=== PATIENT | male | born 1975 | race Caucasian/White ===

== ENCOUNTER 2022-09-19 03:07 | Emergency (ER) | payer MEDICARE ==
[~2022-09-19] VITALS: Ht 182.9 cm; Wt 72.6 kg
[2022-09-19 05:46] LABS: BASOPHILS ABSOLUTE AUTO 0.06 K/mm3 (0.00-0.23); BASOPHILS PERCENT AUTO 1 % (0-2); EOSINOPHILS ABSOLUTE AUTO 0.27 K/mm3 (0.00-0.68); EOSINOPHILS PERCENT AUTO 2 % (0-6); Hematocrit 46.8 % (37.0-53.0); Hemoglobin 15.3 g/dL (13.5-17.5); IMMATURE GRAN ABSOLUTE AUTO 0.04 K/mm3 (0.00-0.10); IMMATURE GRAN PERCENT AUTO 0 % (0-1); LYMPHOCYTES ABSOLUTE AUTO 2.29 K/mm3 (0.84-5.20); LYMPHOCYTES PERCENT AUTO 19 % (21-46); MONOCYTES ABSOLUTE AUTO 0.96 K/mm3 (0.16-1.47); MONOCYTES PERCENT AUTO 8 % (4-13); Mean Corpuscular HGB 32.4 pg (26.0-34.0); Mean Corpuscular HGB Conc 32.7 g/dL (31.5-36.5); Mean Corpuscular Volume 99 fL (80-100); Mean Platelet Volume 8.8 fL (9.1-12.4); NEUTROPHILS ABSOLUTE AUTO 8.51 K/mm3 (1.96-9.15); NEUTROPHILS PERCENT AUTO 70 % (41-73); Platelet Count 199 K/mm3 (150-400); RDW Coefficient Variation 12.7 % (11.7-14.2); RDW Standard Deviation 46.7 fL (35.1-46.3); Red Blood Cell Count 4.72 M/mm3 (4.30-5.90); White Blood Cell Count 12.13 K/mm3 (4.00-11.30)
[2022-09-19 06:13] LABS: Albumin, Blood 3.6 g/dL (3.4-5.0); Bilirubin, Total 0.7 mg/dL (0.1-1.0); Bun/Creatinine Ratio 14.9 (12.0-20.0); Calcium, Blood 9.1 mg/dL (8.5-10.1); Creatinine, Blood 0.87 mg/dL (0.60-1.20); Globulin, Blood 3.6 g/dL (2.2-4.0); Potassium, Blood 4.1 mmol/L (3.5-5.5); Total Protein, Blood 7.2 g/dL (6.4-8.2)
[2022-09-19 06:56] LABS: Source, Urine Clean Catch
[2022-09-19 07:09] LABS: Appearance, Urine Clear (Clear); Bilirubin, Urine Neg (Neg); Blood, Urine Neg (Neg); Color, Urine Yellow (P-Yellow); Glucose Qualitative, Urine Neg (Neg); Ketones, Urine Neg (Neg); Leukocyte Esterase, Urine Neg (Neg); Nitrite, Urine Neg (Neg); Protein, Urine Neg (Neg); Urobilinogen, Urine NORM (Normal)
== END 2022-09-19 07:29 | disposition home or self-care (01) ==
LOC: ER 03:07
PROVIDERS: Student in an Organized Health Care Education/Training Program
DX: R10.9 Unspecified abdominal pain (principal); G89.29 Other chronic pain; M54.9 Dorsalgia, unspecified; F17.200 Nicotine dependence, unspecified, uncomplicated
CPT/HCPCS: 36415; 74177; 80053; 81003; 83690; 85025; Q9967

== ENCOUNTER 2023-05-03 06:30 | Day surgery (SDC) | payer MEDICARE ==
[~2023-05-03] VITALS: Ht 188 cm; Wt 83.1 kg
[2023-05-03] MEDS ORDERED: L-Lysine500 M1 (07:02)
[2023-05-03] MEDS ORDERED: CETI5 (07:02)
[2023-05-03 09:18] VITALS: BP 118/73
== END 2023-05-03 09:15 | disposition home or self-care (01) ==
LOC: ORSCSDS 06:30
PROVIDERS: Internal Medicine Gastroenterology
PROC: 0DBL8ZX Excision of Transverse Colon, Via Natural or Artificial Opening Endoscopic, Diagnostic (ICD-10-PCS; principal; 2023-05-03 08:00)
DX: K62.89 Other specified diseases of anus and rectum (principal); Z86.010 Personal history of colon polyps; D12.3 Benign neoplasm of transverse colon; K59.00 Constipation, unspecified; K64.8 Other hemorrhoids; K60.2 Anal fissure, unspecified; F31.9 Bipolar disorder, unspecified; H54.7 Unspecified visual loss; F17.210 Nicotine dependence, cigarettes, uncomplicated; Z79.899 Other long term (current) drug therapy
CPT/HCPCS: 88305; J2001; J2704; J7120

== ENCOUNTER 2023-07-10 13:12 | Emergency (ER) | payer MEDICARE ==
[~2023-07-10] VITALS: Ht 188 cm; Wt 81.7 kg
[~2023-07-10 13:12] MED LIST: CETI5; L-Lysine500 M1
[2023-07-10 14:12] VITALS: BP 126/104
== END 2023-07-10 14:32 | disposition left against medical advice (07) ==
LOC: ER 13:12
DX: S01.80XA Unspecified open wound of other part of head, initial encounter (principal); X58.XXXA Exposure to other specified factors, initial encounter; Z53.21 Procedure and treatment not carried out due to patient leaving prior to being seen by health care provider
CPT/HCPCS: 99282

== ENCOUNTER 2023-09-24 18:02 | Emergency (ER) | payer MEDICARE ==
[~2023-09-24] VITALS: Ht 188 cm; Wt 86.2 kg
[2023-09-24 19:00] VITALS: BP 135/72
== END 2023-09-25 00:44 | disposition left against medical advice (07) ==
LOC: ER 18:02
DX: Z53.21 Procedure and treatment not carried out due to patient leaving prior to being seen by health care provider (principal)
CPT/HCPCS: 99281

== ENCOUNTER 2023-10-26 20:37 | Emergency (ER) | payer MEDICARE ==
[~2023-10-26] VITALS: Ht 188 cm; Wt 86.2 kg
[2023-10-26] MEDS ORDERED: VRAYLAR3 MG PO (20:53)
[2023-10-26 21:45] VITALS: BP 119/62
== END 2023-10-26 21:51 | disposition left against medical advice (07) ==
LOC: ER 20:37
DX: Z53.21 Procedure and treatment not carried out due to patient leaving prior to being seen by health care provider (principal)
CPT/HCPCS: 93005; 93010

== ENCOUNTER 2024-06-26 22:08 | Emergency (ER) | payer MEDICARE ==
[~2024-06-26] VITALS: Ht 175.3 cm; Wt 90.7 kg
[~2024-06-26 22:08] MED LIST changes: +VRAYLAR3 MG PO
[2024-06-26] MEDS ORDERED: Droperidol 5 mg/2 ml Vial IV ONE (22:20)
[2024-06-26 22:37] LABS: BASOPHILS ABSOLUTE AUTO 0.06 K/mm3 (0.00-0.23); BASOPHILS PERCENT AUTO 0 % (0-2); EOSINOPHILS PERCENT AUTO 0 % (0-6); Hematocrit 41.3 % (37.0-53.0); IMMATURE GRAN ABSOLUTE AUTO 0.26 K/mm3 (0.00-0.10); IMMATURE GRAN PERCENT AUTO 2 % (0-1); LYMPHOCYTES PERCENT AUTO 12 % (21-46); MONOCYTES ABSOLUTE AUTO 1.19 K/mm3 (0.16-1.47); MONOCYTES PERCENT AUTO 7 % (4-13); Mean Corpuscular HGB 32.6 pg (26.0-34.0); Mean Corpuscular HGB Conc 33.9 g/dL (31.5-36.5); Mean Corpuscular Volume 96 fL (80-100); Mean Platelet Volume 8.7 fL (9.1-12.4); NEUTROPHILS ABSOLUTE AUTO 13.05 K/mm3 (1.96-9.15); NEUTROPHILS PERCENT AUTO 79 % (41-73); Platelet Count 220 K/mm3 (150-400); RDW Coefficient Variation 13.3 % (11.7-14.2); White Blood Cell Count 16.46 K/mm3 (4.00-11.30)
[2024-06-26] MEDS ORDERED: LORazepam 2 MG/ML 1ML Injection IV ONE (22:45)
[2024-06-26 23:24] LABS: Albumin, Blood 3.5 g/dL (3.4-5.0); Bilirubin, Total 0.5 mg/dL (0.1-1.0); Bun/Creatinine Ratio 12.5 (12.0-20.0); Calcium, Blood 8.9 mg/dL (8.5-10.1); Creatinine, Blood 1.04 mg/dL (0.60-1.20); Globulin, Blood 3.4 g/dL (2.2-4.0); Potassium, Blood 3.7 mmol/L (3.5-5.5); Total Protein, Blood 6.9 g/dL (6.4-8.2)
[2024-06-26] MEDS ORDERED: Haloperidol Lactate Inj. 5 MG/ML Injection IV ONE (23:30)
[2024-06-26 23:38] LABS: International Normalized Ratio 0.98; Prothrombin Time Results 10.5 Sec (9.7-11.5)
[2024-06-27] MEDS ORDERED: NS 1,000 ML IV SCH (00:10)
[2024-06-27 00:32] LABS: U Amphetamine Screen Not Detected; U Barbituate Screen Not Detected; U Benzodiazapine Screen Not Detected; U Buprenorphine Screen Not Detected; U Cannabinoids Screen DETECTED; U Cocaine Screen Not Detected; U Methadone Screen Not Detected; U Methamphetamine Screen Not Detected; U Opiates Screen Not Detected; U Oxycodone Screen Not Detected; U Phencyclidine Screen Not Detected
[2024-06-27] MEDS ORDERED: LORazepam 2 MG/ML 1ML Injection IV ONE (02:05)
[2024-06-27] MEDS ORDERED: Haloperidol Lactate Inj. 5 MG/ML Injection ONE (02:16)
[2024-06-27] MEDS ORDERED: Haloperidol Lactate Inj. 5 MG/ML Injection IV ONE (02:30)
[2024-06-27 04:00] VITALS: BP 129/75
== END 2024-06-27 09:19 | disposition home or self-care (01) ==
LOC: ER 22:08
PROVIDERS: Emergency Medicine
DX: S00.03XA Contusion of scalp, initial encounter (principal); F10.129 Alcohol abuse with intoxication, unspecified; Y90.8 Blood alcohol level of 240 mg/100 ml or more; F12.90 Cannabis use, unspecified, uncomplicated; Y04.8XXA Assault by other bodily force, initial encounter; Z79.899 Other long term (current) drug therapy; F17.200 Nicotine dependence, unspecified, uncomplicated
CPT/HCPCS: 70450; 70486; 80053; 80320; 83605; 85025; 85610; 85730; 96374; 96375; 96376; 99285-25; J1630; J1790; J2060; J7030

== ENCOUNTER 2024-07-23 17:55 | Emergency (ER) | payer MEDICARE ==
[~2024-07-23] VITALS: Ht 185.4 cm; Wt 90.7 kg
[2024-07-23] MEDS ORDERED: Ondansetron HCl 2 MG / ML 2ML Vial IV ONE (18:10)
[2024-07-23] MEDS ORDERED: Droperidol 5 mg/2 ml Vial IV ONE (18:35)
[2024-07-23 18:39] LABS: Source, Urine Clean Catch
[2024-07-23 18:44] LABS: BASOPHILS ABSOLUTE AUTO 0.07 K/mm3 (0.00-0.23); BASOPHILS PERCENT AUTO 1 % (0-2); EOSINOPHILS PERCENT AUTO 2 % (0-6); Hemoglobin 15.2 g/dL (13.5-17.5); IMMATURE GRAN ABSOLUTE AUTO 0.05 K/mm3 (0.00-0.10); IMMATURE GRAN PERCENT AUTO 1 % (0-1); LYMPHOCYTES ABSOLUTE AUTO 2.89 K/mm3 (0.84-5.20); LYMPHOCYTES PERCENT AUTO 28 % (21-46); MONOCYTES PERCENT AUTO 8 % (4-13); Mean Corpuscular HGB 31.9 pg (26.0-34.0); Mean Corpuscular Volume 97 fL (80-100); Mean Platelet Volume 8.5 fL (9.1-12.4); NEUTROPHILS PERCENT AUTO 61 % (41-73); Platelet Count 230 K/mm3 (150-400); RDW Coefficient Variation 13.3 % (11.7-14.2); RDW Standard Deviation 47.9 fL (35.1-46.3); Red Blood Cell Count 4.76 M/mm3 (4.30-5.90); White Blood Cell Count 10.31 K/mm3 (4.00-11.30)
[2024-07-23 18:45] LABS: Appearance, Urine Clear (Clear); Bilirubin, Urine Neg (Neg); Blood, Urine Neg (Neg); Glucose Qualitative, Urine Neg (Neg); Ketones, Urine Neg (Neg); Leukocyte Esterase, Urine Neg (Neg); Nitrite, Urine Neg (Neg); Protein, Urine Neg (Neg); Urobilinogen, Urine NORM (Normal)
[2024-07-23 19:00] LABS: U Amphetamine Screen Not Detected; U Barbituate Screen Not Detected; U Benzodiazapine Screen Not Detected; U Buprenorphine Screen Not Detected; U Cannabinoids Screen DETECTED; U Cocaine Screen Not Detected; U Methadone Screen Not Detected; U Methamphetamine Screen Not Detected; U Opiates Screen Not Detected; U Oxycodone Screen Not Detected; U Phencyclidine Screen Not Detected
[2024-07-23 19:02] LABS: Color, Urine Pale Yellow (P-Yellow)
[2024-07-23 19:14] LABS: Albumin, Blood 3.7 g/dL (3.4-5.0); Bilirubin, Total 0.7 mg/dL (0.1-1.0); Bun/Creatinine Ratio 8.4 (12.0-20.0); Calcium, Blood 8.5 mg/dL (8.5-10.1); Creatinine, Blood 0.96 mg/dL (0.60-1.20); Globulin, Blood 3.7 g/dL (2.2-4.0); Potassium, Blood 3.8 mmol/L (3.5-5.5); Total Protein, Blood 7.4 g/dL (6.4-8.2)
[2024-07-23 23:39] VITALS: BP 138/70
== END 2024-07-23 23:40 | disposition home or self-care (01) ==
LOC: ER 17:55
PROVIDERS: Student in an Organized Health Care Education/Training Program
DX: F10.129 Alcohol abuse with intoxication, unspecified (principal); Y90.8 Blood alcohol level of 240 mg/100 ml or more; F32.A Depression, unspecified; F17.200 Nicotine dependence, unspecified, uncomplicated; Z79.899 Other long term (current) drug therapy
CPT/HCPCS: 70450; 80053; 80320; 81003; 84484; 85025; 93005; 93010; 96374; 96375; 99285-25; J1790; J2405

== ENCOUNTER 2024-08-15 19:03 | Emergency (ER) | payer MEDICARE ==
[~2024-08-15] VITALS: Ht 188 cm; Wt 90.7 kg
[2024-08-15 19:03] VITALS: BP 129/79
[2024-08-15] MEDS ORDERED: Diphth,Pertuss(Acell),Tet Vac 0.5 ML VIAL IM ONE (19:15)
== END 2024-08-16 19:19 ==
LOC: ER 19:03
DX: S80.211A Abrasion, right knee, initial encounter (principal); F10.129 Alcohol abuse with intoxication, unspecified; F17.200 Nicotine dependence, unspecified, uncomplicated; W19.XXXA Unspecified fall, initial encounter; Z79.899 Other long term (current) drug therapy
CPT/HCPCS: 90471; 90715; 99283-25

== ENCOUNTER 2024-11-20 16:04 | Emergency (ER) | payer MEDICARE ==
[~2024-11-20] VITALS: Ht 188 cm; Wt 93.0 kg
[2024-11-20 17:13] VITALS: BP 129/78
== END 2024-11-20 21:27 | disposition home or self-care (01) ==
LOC: ER 16:04
DX: S01.81XA Laceration without foreign body of other part of head, initial encounter (principal); F10.129 Alcohol abuse with intoxication, unspecified; F17.200 Nicotine dependence, unspecified, uncomplicated; W19.XXXA Unspecified fall, initial encounter; Z79.899 Other long term (current) drug therapy
CPT/HCPCS: 12011; 70450; 72125; 99284-25

== ENCOUNTER 2024-11-22 19:48 | Emergency (ER) | payer MEDICARE ==
[~2024-11-22] VITALS: Ht 188 cm; Wt 99.8 kg
[2024-11-22 20:13] VITALS: BP 101/66
[2024-11-22] MEDS ORDERED: Diphth,Pertuss(Acell),Tet Vac 0.5 ML VIAL IM ONE (20:20)
== END 2024-11-22 21:40 | disposition home or self-care (01) ==
LOC: ER 19:48
DX: F10.129 Alcohol abuse with intoxication, unspecified (principal); F17.200 Nicotine dependence, unspecified, uncomplicated; Z79.899 Other long term (current) drug therapy
CPT/HCPCS: 90471; 93005; 93010; 99284-25

== ENCOUNTER 2024-12-25 21:12 | Inpatient (IN) | payer OTHER ==
[~2024-12-25] VITALS: Ht 180.3 cm; Wt 82.4 kg
[~2024-12-25 21:12] MED LIST changes: +Etomidate 2MG / ML 10ML Vial XX ONE; +LORazepam 2 MG / ML 10ML Vial IV ONE; +Rocuronium Bromide 10 MG/ML 5ML Injection IV ONE
[2024-12-25] MEDS ORDERED: Etomidate 2MG / ML 10ML Vial IV ONE (21:40)
[2024-12-25] MEDS ORDERED: propofoL 100 ML IV SCH (21:40)
[2024-12-25] MEDS ORDERED: Rocuronium Bromide 10 MG/ML 5ML Injection IV ONE (21:40)
[2024-12-25] MEDS ORDERED: FentaNYL Citrate 50 MCG/ML 2 ML Injection IV SCH (21:40)
[2024-12-25 21:47] LABS: BASOPHILS ABSOLUTE AUTO 0.04 K/mm3 (0.00-0.23); BASOPHILS PERCENT AUTO 0 % (0-2); EOSINOPHILS ABSOLUTE AUTO 0.14 K/mm3 (0.00-0.68); EOSINOPHILS PERCENT AUTO 2 % (0-6); Hematocrit 39.3 % (37.0-53.0); Hemoglobin 13.4 g/dL (13.5-17.5); IMMATURE GRAN ABSOLUTE AUTO 0.07 K/mm3 (0.00-0.10); IMMATURE GRAN PERCENT AUTO 1 % (0-1); LYMPHOCYTES ABSOLUTE AUTO 2.88 K/mm3 (0.84-5.20); LYMPHOCYTES PERCENT AUTO 30 % (21-46); MONOCYTES ABSOLUTE AUTO 0.93 K/mm3 (0.16-1.47); MONOCYTES PERCENT AUTO 10 % (4-13); Mean Corpuscular HGB 32.5 pg (26.0-34.0); Mean Corpuscular HGB Conc 34.1 g/dL (31.5-36.5); Mean Corpuscular Volume 95 fL (80-100); Mean Platelet Volume 9.1 fL (9.1-12.4); NEUTROPHILS ABSOLUTE AUTO 5.47 K/mm3 (1.96-9.15); NEUTROPHILS PERCENT AUTO 57 % (41-73); Platelet Count 200 K/mm3 (150-400); RDW Coefficient Variation 13.3 % (11.7-14.2); RDW Standard Deviation 46.5 fL (35.1-46.3); Red Blood Cell Count 4.12 M/mm3 (4.30-5.90); White Blood Cell Count 9.53 K/mm3 (4.00-11.30)
[2024-12-25] MEDS ORDERED: fentaNYL citrate 1,000 MCG in NS 80 ML IV SCH (22:10)
[2024-12-25 22:11] LABS: Source, Urine Clean Catch
[2024-12-25 22:14] LABS: Magnesium, Blood 2.3 mg/dL (1.6-2.4)
[2024-12-25 22:17] LABS: Albumin, Blood 3.5 g/dL (3.4-5.0); Bilirubin, Total 0.4 mg/dL (0.1-1.0); Bun/Creatinine Ratio 15.2 (12.0-20.0); Calcium, Blood 8.3 mg/dL (8.5-10.1); Creatinine, Blood 0.86 mg/dL (0.60-1.20); Globulin, Blood 3.4 g/dL (2.2-4.0); Potassium, Blood 3.6 mmol/L (3.5-5.5); Total Protein, Blood 6.9 g/dL (6.4-8.2)
[2024-12-25 22:20] LABS: Appearance, Urine Clear (Clear); Bilirubin, Urine Neg (Neg); Blood, Urine Neg (Neg); Color, Urine Pale Yellow (P-Yellow); Glucose Qualitative, Urine Neg (Neg); Ketones, Urine Neg (Neg); Leukocyte Esterase, Urine Neg (Neg); Nitrite, Urine Neg (Neg); Protein, Urine Neg (Neg); Specific Gravity, Urine 1.015 (1.003-1.022); Urobilinogen, Urine NORM (Normal)
[2024-12-25 22:41] LABS: U Amphetamine Screen Not Detected; U Barbituate Screen Not Detected; U Benzodiazapine Screen Not Detected; U Buprenorphine Screen Not Detected; U Cannabinoids Screen DETECTED; U Cocaine Screen Not Detected; U Methadone Screen Not Detected; U Methamphetamine Screen Not Detected; U Opiates Screen Not Detected; U Oxycodone Screen Not Detected; U Phencyclidine Screen Not Detected
[2024-12-25] MEDS ORDERED: dexmedeTOMIDine 100 ML IV SCH (23:10)
[2024-12-26] VITALS (49 sets, daily range): BP systolic 92–151; BP diastolic 58–88
[2024-12-26] MEDS ORDERED: NS 1,000 ML IV SCH ×2 (00:55→02:15)
[2024-12-26] MEDS ORDERED: MetroNIDAZOLE 500MG/NS 100 ml 100 ML IV ONE (01:50)
[2024-12-26] MEDS ORDERED: CefTRIAXone Sodium 1,000 MG in NS 50 ML IV ONE (01:50)
[2024-12-26 01:52] LABS: Base Excess Venous -4.3 mmol/L; Bicarbonate Venous 21.5 mmol/L (24.0-30.0); pH Blood Venous 7.42 (7.34-7.37)
[2024-12-26] MEDS ORDERED: NS 1,000 ML IV ONE ×2 (02:08→09:10)
[2024-12-26] MEDS ORDERED: Midazolam HCL 50 MG in NS 40 ML IV PRN (02:10)
[2024-12-26] MEDS ORDERED: Midazolam HCl 1MG / ML 2ML Vial IV PRN (03:45)
[2024-12-26] MEDS ORDERED: FLU VACC TS2024-25(6MOS UP)/PF 45 MCG/0.5 ML SYRINGE IM ONE (03:45)
[2024-12-26] MEDS ORDERED: Acetaminophen 325 MG TABLET PO PRN (03:45)
[2024-12-26] MEDS ORDERED: FentaNYL Citrate 50 MCG/ML 5 ML Injection IV SCH (03:50)
[2024-12-26 03:54] LABS: BASOPHILS ABSOLUTE AUTO 0.02 K/mm3 (0.00-0.23); BASOPHILS PERCENT AUTO 0 % (0-2); EOSINOPHILS ABSOLUTE AUTO 0.05 K/mm3 (0.00-0.68); EOSINOPHILS PERCENT AUTO 1 % (0-6); Hematocrit 34.5 % (37.0-53.0); Hemoglobin 12.2 g/dL (13.5-17.5); IMMATURE GRAN ABSOLUTE AUTO 0.04 K/mm3 (0.00-0.10); IMMATURE GRAN PERCENT AUTO 1 % (0-1); LYMPHOCYTES ABSOLUTE AUTO 2.52 K/mm3 (0.84-5.20); LYMPHOCYTES PERCENT AUTO 31 % (21-46); MONOCYTES ABSOLUTE AUTO 0.65 K/mm3 (0.16-1.47); MONOCYTES PERCENT AUTO 8 % (4-13); Mean Corpuscular HGB 32.9 pg (26.0-34.0); Mean Corpuscular HGB Conc 35.4 g/dL (31.5-36.5); Mean Corpuscular Volume 93 fL (80-100); Mean Platelet Volume 9.2 fL (9.1-12.4); NEUTROPHILS ABSOLUTE AUTO 4.74 K/mm3 (1.96-9.15); NEUTROPHILS PERCENT AUTO 59 % (41-73); Platelet Count 182 K/mm3 (150-400); RDW Coefficient Variation 13.2 % (11.7-14.2); RDW Standard Deviation 45.4 fL (35.1-46.3); Red Blood Cell Count 3.71 M/mm3 (4.30-5.90); White Blood Cell Count 8.02 K/mm3 (4.00-11.30)
[2024-12-26] MEDS ORDERED: Hydrogen Peroxide 1.5 % Solution MT SCH (04:00)
[2024-12-26] MEDS ORDERED: Lactated Ringer's 1,000 ML IV SCH (04:00)
[2024-12-26 04:20] LABS: Albumin/Globulin Ratio 1.1 (0.8-1.8); Bilirubin, Total 0.5 mg/dL (0.1-1.0); Bun/Creatinine Ratio 14.6 (12.0-20.0); Calcium, Blood 7.6 mg/dL (8.5-10.1); Creatinine, Blood 0.69 mg/dL (0.60-1.20); Globulin, Blood 2.7 g/dL (2.2-4.0); Magnesium, Blood 2.1 mg/dL (1.6-2.4); Potassium, Blood 3.5 mmol/L (3.5-5.5); Total Protein, Blood 5.7 g/dL (6.4-8.2)
[2024-12-26] MEDS ORDERED: dexmedeTOMIDine 100 ML IV SCH (04:25)
[2024-12-26] MEDS ORDERED: propofoL 100 ML IV PRN (04:25)
[2024-12-26] MEDS ORDERED: Ampicillin Sod/Sulbactam Sod 3 GM in NS 100 ML IV SCH (05:00)
[2024-12-26] MEDS ORDERED: Pantoprazole Sodium 40 MG Injection IV SCH (06:00)
--- NOTE | 2024-12-26 06:10 | NUR ---
SHIFT SUMMARY: PATIENT ARRIVED FROM THE ED APPROXIMATELY 0300. HE WAS INTUBATED, VENTILATED, TEMP FINLEY IN PLACE ON [place] AND VERSED GTT. HE HAD C-COLLAR IN PLACE. 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 PT HR 50S-60S, BP STABLE. HE HAS EXHIBITED SOME RESPONSE TO PRESSURE OR STIMULI BUT NOT FOLLOWING COMMANDS.
[2024-12-26] MEDS ORDERED: Cetylpyridinium Chloride 1 EA MISC MT SCH (08:00)
[2024-12-26] MEDS ORDERED: Lactobacil 2-S.Thermo-Bifido 1 1 Cap PO SCH (09:00)
[2024-12-26] MEDS ORDERED: fentaNYL citrate 1,000 MCG in NS 80 ML IV SCH (09:10)
--- NOTE | 2024-12-26 17:11 | NUR ---
SUMMARY PT WAS INTUBATED AND SEDATED UNTIL THIS AFTERNOON. DIFFICULT TO SEDATE THIS AM WITH AGITATION. SEDATION WAS SHUT OFF THIS AFTERNOON SEE FLOWSHEET. PT WAS CALM AND COOPERATIVE. PT EXTUBATED TO 2LNC AT 1423. PT IS PLEASANT AND COOPERATIVE. A/O TO PERSON, PLACE, TIME, AND FAMILY. ANSWERING QUESTIONS APPROPRIATELY. STARTING TO REMEMBER SOME OF EVENTS LEADING TO HOSPITALIZATION. TOLERATING WATER, WILL TRY CLEAR LIQUID DIET TONIGHT. VOICE IS GETTING STRONGER.
[2024-12-26] MEDS ORDERED: LORazepam 2 MG/ML 1ML Injection IV PRN ×3 (18:05)
--- NOTE | 2024-12-26 18:52 | NUR ---
SUMMARY PT WAS INTUBATED AND SEDATED THIS AM. SEDATION WAS TITRATED OFF SEE FLOWSHEET AND EXTUBATED TO 2L NC AT 1423. PT IS A/O TO PERSON, PLACE, AND FAMILY. STARTING TO REMEMBER SOME OF THE EVENTS THAT LEAD TO HOSPITALIZATION. TOLERATED WATER AND SOME OF CL DINNER TRAY. THIS EVENING PT IS BECOMING AGITATED AND HAS SUICIDAL IDEATION. MORE AGITATED WITH FAMILY AT BEDSIDE. DR. LEAL NOTIFIED. 1:1 SITTER FOR SAFETY, PRECEDEX STARTED. PT STATES HE JUST WANTS TO SLEEP FOR 12 HRS STRAIGHT.
[2024-12-26] MEDS ORDERED: Folic Acid 1 MG in NS 50 ML IV SCH (21:00)
[2024-12-26] MEDS ORDERED: Thiamine HCl 100 MG in NS 50 ML IV SCH (21:00)
[2024-12-27] VITALS (26 sets, daily range): BP systolic 106–172; BP diastolic 70–111
[2024-12-27 05:26] LABS: BASOPHILS ABSOLUTE AUTO 0.03 K/mm3 (0.00-0.23); BASOPHILS PERCENT AUTO 0 % (0-2); EOSINOPHILS ABSOLUTE AUTO 0.14 K/mm3 (0.00-0.68); EOSINOPHILS PERCENT AUTO 2 % (0-6); Hematocrit 36.8 % (37.0-53.0); Hemoglobin 12.7 g/dL (13.5-17.5); IMMATURE GRAN ABSOLUTE AUTO 0.05 K/mm3 (0.00-0.10); IMMATURE GRAN PERCENT AUTO 1 % (0-1); LYMPHOCYTES ABSOLUTE AUTO 2.13 K/mm3 (0.84-5.20); LYMPHOCYTES PERCENT AUTO 25 % (21-46); MONOCYTES ABSOLUTE AUTO 0.87 K/mm3 (0.16-1.47); MONOCYTES PERCENT AUTO 10 % (4-13); Mean Corpuscular HGB Conc 34.5 g/dL (31.5-36.5); Mean Corpuscular Volume 96 fL (80-100); Mean Platelet Volume 9.4 fL (9.1-12.4); NEUTROPHILS ABSOLUTE AUTO 5.21 K/mm3 (1.96-9.15); NEUTROPHILS PERCENT AUTO 62 % (41-73); Platelet Count 174 K/mm3 (150-400); RDW Coefficient Variation 13.6 % (11.7-14.2); RDW Standard Deviation 47.6 fL (35.1-46.3); Red Blood Cell Count 3.85 M/mm3 (4.30-5.90); White Blood Cell Count 8.43 K/mm3 (4.00-11.30)
[2024-12-27 05:44] LABS: Albumin, Blood 2.8 g/dL (3.4-5.0); Bilirubin, Total 1.2 mg/dL (0.1-1.0); Bun/Creatinine Ratio 11.8 (12.0-20.0); Creatinine, Blood 0.85 mg/dL (0.60-1.20); Globulin, Blood 2.8 g/dL (2.2-4.0); Potassium, Blood 3.8 mmol/L (3.5-5.5); Total Protein, Blood 5.6 g/dL (6.4-8.2)
--- NOTE | 2024-12-27 06:16 | NUR ---
SHIFT SUMMARY: PT HAS RESTED PEACEFULLY THROUGH NIGHT. HE HAS DENIED SUICIDAL IDEATION THROUGH SHIFT AND HAS BEEN VERY CALM AND COOPERATIVE. HE REMAINS ON PRECEDEX GTT. HE IS A&OX4. NEUROLOGICALLY INTACT. HE HAS DENIED SYMPTOMS ASSOCIATED WITH ALCOHOL WITHDRAWAL SO FAR. PT DENIES BEING AN EVERY DAY ALCOHOL DRINKER. BREATHING HAS BEEN NON-LABORED, LUNGS ARE CLEAR. HE HAS BEEN IN A SINUS SARABJIT, BUT WAS DURING SHIFT THE NIGHT PRIOR WELL. BLOOD PRESSURE REMAINS STABLE.
[2024-12-27] MEDS ORDERED: Enoxaparin 40 MG/0.4 ML SYR SC SCH (08:00)
[2024-12-27] MEDS ORDERED: TraMADol HCl 50 MG Tab PO PRN (08:30)
--- NOTE | 2024-12-27 09:27 | NUR ---
THIS RN ASSUMED CARE OF PT AT 0700. PT IS ALERT AND ORIENTED X3, WAS A LITTLE CONFUSED ABOUT THE SITUATION. PT IS APPROPRTIATE AND COOPERATIVE. PT HEART RATE IN THE 70s, BLOOD PRESSURE 154/94, PT DENIES CHEST PAIN. PT IS ON ROOM AIR SOUNDS CLEAR, SATTING >95%, PT DENIES SHORTNESS OF BREATH. PT DOES HAVE FINLEY CATHETER DRAINING TO GRAVITY. PT IS STILL HAVING SUICIDAL IDEATIONS, PSYCH HAS BEEN CONSULTED AND NOTIFIED BY THIS RN, THEY STATED THEY WOULD BE BY LATER THIS AFTERNOON. NO OTHER INTERVENTIONS AT THIS TIME. PT IS HAVING SOME BACK PAIN TREATED PER EMAR. PLAN OF CARE CONTINUED.
[2024-12-27] MEDS ORDERED: HydrALAZINE HCl 20 MG / ML 1ML Vial IV PRN (10:10)
[2024-12-27] MEDS ORDERED: dexmedeTOMIDine 100 ML IV SCH (14:25)
[2024-12-27] MEDS ORDERED: LORazepam 2 MG/ML 1ML Injection IV PRN ×2 (14:55→15:00)
[2024-12-27] MEDS ORDERED: Haloperidol Lactate Inj. 5 MG/ML Injection IM PRN (15:00)
[2024-12-27] MEDS ORDERED: Folic Acid 1 MG TAB PO SCH (15:00)
[2024-12-27] MEDS ORDERED: Lisinopril 5 MG Tab PO SCH (17:00)
--- NOTE | 2024-12-27 17:06 | NUR ---
Pastoral care visitation conducted. Pt was recumbent and reciprocated pleasant salutation upon entry into his room. He reflected easily and proceeded to share about his life situation. Active listening and rapport establishing feedback extended. Patient spoke about his supportive mother but remained despondent in his outlook on his situation. Brief encouragement and words of inspiration extended along with consolatory prayer. Patient was receptive and remained at ease congruently. Pastoral care to remain available as needed.
--- NOTE | 2024-12-27 17:10 | NUR ---
DISCUSSED CASE WITH PROVIDER AND BEDSIDE RN. THERAPUTIC CONVERSATION TO PATIENT AND FAMILY. DISCUSSED CONCERNS ABOUT PATIENTS SAFTY IF HE LEAVES THE HOSPITAL. PROVIDER DISCUSSED WITH PATIENT AND FAMILY, PATIENT PLACED ON 2MD HOLD.
--- NOTE | 2024-12-27 17:24 | NUR ---
PT SUMMARY PT IS PLEASANT, AND STILL COOPERATIVE. THIS AM PT DID HAVE SUICIDAL IDEATIONS, DR. LEAL WAS ALSO PRESENT AT BEDSIDE. [facility] DOCTOR CAME BY AND WAS TOLD A COMPLETELY DIFFERENT STORY. AFTER A DISCUSSION WITH , PT WAS PUT ON A INVOLUNTARY HOLD. PT IS AWARE AND LEE WILL COME BY AGAIN IN THE AM TO REASSESS THE PT. PT IS BACK ON PRECEDEX NOW TITRATED UP TO 0.5. PT WAS AGITATED AT 1200 WITH THE HOLD, BUT HAS CALMED DOWN SINCE. NO OTHER INTERVENTIONS AT THIS TIME. PLAN OF CARE CONTINUED.
[2024-12-28] VITALS (20 sets, daily range): BP systolic 101–148; BP diastolic 59–83
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
[2024-12-28 07:55] LABS: BASOPHILS ABSOLUTE AUTO 0.03 K/mm3 (0.00-0.23); BASOPHILS PERCENT AUTO 0 % (0-2); EOSINOPHILS ABSOLUTE AUTO 0.12 K/mm3 (0.00-0.68); EOSINOPHILS PERCENT AUTO 2 % (0-6); Hematocrit 38.8 % (37.0-53.0); Hemoglobin 13.2 g/dL (13.5-17.5); IMMATURE GRAN ABSOLUTE AUTO 0.04 K/mm3 (0.00-0.10); IMMATURE GRAN PERCENT AUTO 1 % (0-1); LYMPHOCYTES PERCENT AUTO 23 % (21-46); MONOCYTES ABSOLUTE AUTO 0.87 K/mm3 (0.16-1.47); MONOCYTES PERCENT AUTO 11 % (4-13); Mean Corpuscular HGB 32.1 pg (26.0-34.0); Mean Corpuscular Volume 94 fL (80-100); Mean Platelet Volume 9.2 fL (9.1-12.4); NEUTROPHILS ABSOLUTE AUTO 5.23 K/mm3 (1.96-9.15); NEUTROPHILS PERCENT AUTO 64 % (41-73); Platelet Count 210 K/mm3 (150-400); RDW Coefficient Variation 13.3 % (11.7-14.2); RDW Standard Deviation 46.1 fL (35.1-46.3); Red Blood Cell Count 4.11 M/mm3 (4.30-5.90); White Blood Cell Count 8.19 K/mm3 (4.00-11.30)
[2024-12-28 08:15] LABS: Albumin, Blood 3.1 g/dL (3.4-5.0); Bilirubin, Total 1.9 mg/dL (0.1-1.0); Bun/Creatinine Ratio 9.2 (12.0-20.0); Calcium, Blood 8.5 mg/dL (8.5-10.1); Creatinine, Blood 0.87 mg/dL (0.60-1.20); Globulin, Blood 3.2 g/dL (2.2-4.0); Potassium, Blood 3.7 mmol/L (3.5-5.5); Total Protein, Blood 6.3 g/dL (6.4-8.2)
--- NOTE | 2024-12-28 09:40 | NUR ---
THIS RN ASSUMED CARE OF PT AT 0700. PT IS ALERT AND ORIENTED X4, PT IS VERY APPROPRIATE AND KIND. PT HEART RATE IN THE 70s, BLOOD PRESSURE STABLE AT 119/59. PT DENIES CHEST PAIN UPON ASSESSMENT. PT IS ON ROOM AIR, SOUNDS CLEAR THROUGHOUT AND IS SATTING >95%, PT DENIES SHORTNESS OF BREATH. PT VOIDS PER URINAL. DR. LEAL WAS AT BEDSIDE THIS AM, PROVIDER IS WAITIING FOR PSYCH DOCTOR TO COME REASSESS PT THIS AM, AFTER THAT THE PROVIDERS WILL HAVE A CONVERSATION THEN COME UP WITH A PLAN. NO OTHER INTERVENTIONS AT THIS TIME. PLAN OF CARE CONTINUED.
--- NOTE | 2024-12-28 18:20 | NUR ---
PT SUMMARY PSYCH CAME BY THIS AFTERNOON AND SAID THAT IF PT IS MEDICALLY STABLE PT CAN GO OVER TO [facility] [place], HOSPITALIST PUT IN DISCHARGE ORDERS AND THIS RN COMPLETED AND GOT PT READY FOR [facility] [place] [facility]. THEN U CALLED SAYING THEY DID NOT THINK PT WAS MEDICALLY STABLE ENOUGH AND WANTED PT TO STAY IN THE HOSPITAL ONE MORE NIGHT. PT IS NOW MEDICAL STATUS, MOM AND PT HAVE BEEN UPDATED ON THE SITUATION. NO OTHER INTERVENTIONS AT THIS TIME. PLAN OF CARE CONTINUED.
[2024-12-28] MEDS ORDERED: OLANZapine 10 MG Tab PO SCH (21:00)
[2024-12-29] VITALS (16 sets, daily range): BP systolic 119–140; BP diastolic 70–91
[2024-12-29] MEDS ORDERED: OLANZapine 10 MG Tab PO ONE (17:15)
[2024-12-29] MEDS ORDERED: OLANZapine 10 MG Vial IM PRN (17:30)
[2024-12-29] MEDS ORDERED: Haloperidol Lactate Inj. 5 MG/ML Injection IM PRN (17:40)
[2024-12-29] MEDS ORDERED: OLANZapine ODT 10 MG Tab MM ONE (18:00)
--- NOTE | 2024-12-29 18:52 | NUR ---
Summary. Pt alert and oriented this shift, cooperative with care. Mother updated at bedside this am. During afternoon pt became more upset and agitated. Repeatedly stated he wanted to leave the hospital and get home. Pt stated hx of using marijuana to calm himself and control anxiety. Dr. Alcantara called to bedside for pt agitation, calls maded to Dr. Chau as well. Order obtained for additional dose of PO Zyprexa which pt took. Dr Chau rounded later and stated pt could receive doses of IV ativan if necessary to rest overnight and pt would still be able to discharge to [facility] in the morning. Pt more calm at this time.
--- NOTE | 2024-12-29 21:06 | NUR ---
ASSUMPTION OF CARE: ASSUMED CARE OF PT AT 1900. PT ALERT AND ORIENTED. FOLLOWS DIRECTION AND MAKES NEEDS KNOWN. DENIES SI THIS SHIFT. PLEASANT WITH CARE. DENIES PAIN. PT ON RA WITH SPO2 HIGH 90'S, DENIES SOB. LUNGS CLEAR. PHOTOGRAPHER'S MODEL IN PLACE, SR WITH HR 60-70'S. SBP 130'S. DENIES CP/PRESSURE. SCAB ABOVE LEFT EYE, OPEN TO AIR, BLACKENED EYE TO LEFT WELL FROM PREVIOUS FALL. PIVS INTACT AND SALINE LOCKED. VOIDING INTO URINAL IND. NO BM YET. DENIES N/V, HALLUCINATIONS. DENIES HEADACHE. 1:1 SITTER AT THE BEDSIDE. BED LOW AND LOCKED
--- NOTE | 2024-12-29 21:15 | NUR ---
UPDATE: PT C/O MID EPIGASTRIC PAIN. STATES IT IS A SHARP PAIN THAT DOES NOT RADIATE ANYWHERE ELSE. PT STATES HE HAS HAD THIS PAIN FOR OVER A YEAR. MEDICATED PER EMAR WITH RELIEF.
[2024-12-30] VITALS (8 sets, daily range): BP systolic 123–142; BP diastolic 70–99
[2024-12-30] MEDS ORDERED: OLANZapine 10 MG Tab PO SCH
--- NOTE | 2024-12-30 06:16 | NUR ---
SHIFT SUMMARY: PT CONTINUES TO BE ALERT AND ORIENTED T/O THE SHIFT. ABLE TO REST OFF AND ON T/O THE NIGHT. REMAINS ON RA WITH NO C/O SOB. SPO2 MID 90'S. ACADEMIC ADVISEMENT DIRECTOR IN PLACE, SR WITH HR 50-70'S. DENIES CP/PRESSURE. NO NEW C/O EPIGASTRIC PAIN SINCE GIVEN PRN PAIN MEDS. TOLERATING PO INTAKE. CONTINUES TO DENY SI. SBP 120'S. VOIDING INTO THE URINAL IND. MOVING IN BED IND. PIVS INTACT AND SALINE LOCKED. BED LOW AND LOCKED, SITTER AT THE DOORWAY.
--- NOTE | 2024-12-30 10:34 | NUR ---
LÁZARO IS COOPERATIVE WITH STAFF, HE IS EXPRESSING HIS FRUSTRATION WITH THE SITUATION, HE FEELS LIKE "HE IS IN SNF" BECAUSE HE JUST WANTS TO GO HOME. HE IS ABLE TO SPEAK WITH STAFF AND DOES DO WHAT IS ASKED OF HIM, TOOK HIS MEDICATION, ATE HIS BREAKFAST, VOIDS PER URINAL. MOM IN TO VISIT. SHE TOOK HIS CLOTHES HOME, KEYS AND BELT REMAIN WITH FRESH CLEAN CLOTHES. SHE DID TAKE HIS WALLET HOME.
[2024-12-30 10:35] LABS: Albumin, Blood 3.5 g/dL (3.4-5.0); Albumin/Globulin Ratio 0.9 (0.8-1.8); Bilirubin, Total 1.1 mg/dL (0.1-1.0); Bun/Creatinine Ratio 11.2 (12.0-20.0); Calcium, Blood 9.1 mg/dL (8.5-10.1); Creatinine, Blood 0.8 mg/dL (0.60-1.20); Globulin, Blood 3.9 g/dL (2.2-4.0); Potassium, Blood 4.4 mmol/L (3.5-5.5); Total Protein, Blood 7.4 g/dL (6.4-8.2)
--- NOTE | 2024-12-30 15:00 | NUR ---
PT APPEARS UPSET, THIS RN TO ROOM TO DISCUSS WITH PT. STATES THAT "HE JUST WANTS OUT OF HERE, JUST WANTS TO SMOKE HIS POT" "THIS ISN'T RIGHT THAT I AM BEING HELD HERE, I JUST WANT TO GO HOME" PT MEDICATED WITH HALDOL FOR AGGITATION (SEE EMAR) REPORT WAS GIVEN TO [facility] RN APROX 1 HR AGO BY PRIMARY RN. THIS RN CALLED [facility] AT APROX 1450 FOR UPDATE ON TX TO UNIT. AWAITING CALL BACK.
--- NOTE | 2024-12-30 15:09 | NUR ---
PT LYING IN BED, SITTER AND RN AT BEDSIDE. PT TALKING WITH HIMSELF. GROWLING AT HIMSELF. PT DENIES WANTING ANYTHING TO EAT OR DRINK.
--- NOTE | 2024-12-30 15:19 | NUR ---
PT HAVING INCREASING AGGITATION AT APROX 1445. CONCERN THAT PT WOULD NOT BE COMPLIANT WITH TAKING MEDICATION AND POSSIBLY WOULD BECOME MORE AGGITATED. SO DECISION WAS MADE TO CALL [facility]. PT WAS COMPLIANT WITH MEDICATION ADMINISTRATION. THIS RN TO ROOM, SPOKE WITH PT REGARDING TX TO U, PT IS AGREEABLE AND COOPERATIVE. TRANSPORT HERE AT THIS TIME FOR TRANSFER.
--- NOTE | 2024-12-30 15:44 | NUR ---
pt discharged to u, calm and cooperative at this time
[2024-12-30] MEDS ORDERED: ZIPR60 PO (23:10)
[2024-12-30] MEDS ORDERED: GENICIN500 M1 PO (23:11)
[2024-12-30] MEDS ORDERED: CRANBERRY500 M1 PO (23:12)
[2024-12-30] MEDS ORDERED: L-Lysine500 M1 PO (23:15)
[2024-12-30] MEDS ORDERED: VITAMIN D31250 MC2 PO (23:17)
[2024-12-30] MEDS ORDERED: VIT D3-VIT K21 EACH PO (23:18)
[2024-12-30] MEDS ORDERED: [UNRECOGNIZED DRUG - OTHER] (23:20)
[2024-12-30] MEDS ORDERED: METAMUCIL POWD798 GM PO (23:22)
== END 2024-12-30 15:48 | DRG 871 ==
LOC: ER 21:12 → ICUE 12-26 02:51 → ER 12-26 02:51 → ICUE 12-26 02:52 → ER 12-26 02:58 → ICUE 12-26 03:03 → SURS 12-30 11:17
PROVIDERS: Emergency Medicine; Family Medicine; Registered Nurse; ADMIT Student in an Organized Health Care Education/Training Program
PROC: 5A1935Z Respiratory Ventilation, Less than 24 Consecutive Hours (ICD-10-PCS; principal; 2024-12-26)
PROC: 3E0G76Z Introduction of Nutritional Substance into Upper GI, Via Natural or Artificial Opening (ICD-10-PCS; principal; 2024-12-26)
PROC: 3E03329 Introduction of Other Anti-infective into Peripheral Vein, Percutaneous Approach (ICD-10-PCS; principal; 2024-12-26)
PROC: 0BH17EZ Insertion of Endotracheal Airway into Trachea, Via Natural or Artificial Opening (ICD-10-PCS; principal; 2024-12-26)
PROC: 0DH67UZ Insertion of Feeding Device into Stomach, Via Natural or Artificial Opening (ICD-10-PCS; principal; 2024-12-26)
DX: A41.9 Sepsis, unspecified organism (principal); G92.8 Other toxic encephalopathy; J69.0 Pneumonitis due to inhalation of food and vomit; J96.00 Acute respiratory failure, unspecified whether with hypoxia or hypercapnia; R45.851 Suicidal ideations; K80.51 Calculus of bile duct without cholangitis or cholecystitis with obstruction; F03.911 Unspecified dementia, unspecified severity, with agitation; F03.93 Unspecified dementia, unspecified severity, with mood disturbance; R65.20 Severe sepsis without septic shock; S00.03XA Contusion of scalp, initial encounter; F90.9 Attention-deficit hyperactivity disorder, unspecified type; F17.210 Nicotine dependence, cigarettes, uncomplicated; F12.10 Cannabis abuse, uncomplicated; S09.90XA Unspecified injury of head, initial encounter; Z96.652 Presence of left artificial knee joint; F31.9 Bipolar disorder, unspecified; S80.211A Abrasion, right knee, initial encounter; I10 Essential (primary) hypertension; F10.229 Alcohol dependence with intoxication, unspecified; Y90.7 Blood alcohol level of 200-239 mg/100 ml; R40.2432 Glasgow coma scale score 3-8, at arrival to emergency department; Z79.899 Other long term (current) drug therapy; Z87.820 Personal history of traumatic brain injury; Z87.19 Personal history of other diseases of the digestive system; W22.8XXA Striking against or struck by other objects, initial encounter; Y92.511 Restaurant or cafe as the place of occurrence of the external cause
CPT/HCPCS: 31500; 36415; 51702; 70450; 71045; 71260; 72125; 72170; 74177; 76705; 80053; 80320; 81003; 82803; 82947; 83605; 83690; 83735; 85025; 87040; 93005; 93010; 94002; 94003; 96374; 99285-25; A9270; J0295; J0696; J1630; J1650; J2060; J2250; J2470; J2704; J3010; J3411; J7030; J7120; L0160; Q9967

== ENCOUNTER 2024-12-30 14:45 | Inpatient (IN) | payer OTHER ==
[~2024-12-30 14:45] MED LIST changes: -Etomidate 2MG / ML 10ML Vial XX ONE; -LORazepam 2 MG / ML 10ML Vial IV ONE; -Rocuronium Bromide 10 MG/ML 5ML Injection IV ONE
[2024-12-30] MEDS ORDERED: TraZODone HCl 50 MG Tab PO PRN (15:30)
[2024-12-30] MEDS ORDERED: Polyethylene Glycol 3350 17 gm PO PRN (15:30)
[2024-12-30] MEDS ORDERED: DiphenhydrAMINE HCl 50 MG/ML 1ML Vial IV PRN (15:35)
[2024-12-30] MEDS ORDERED: Aluminum Hydroxide 320MG/5ML 473 ML PO PRN (15:35)
[2024-12-30] MEDS ORDERED: OLANZapine ODT 10 MG Tab MM PRN (15:35)
[2024-12-30] MEDS ORDERED: Melatonin 3 MG Tab PO PRN (15:35)
[2024-12-30] MEDS ORDERED: Acetaminophen 325 MG TABLET PO PRN (15:35)
[2024-12-30] MEDS ORDERED: Calcium Carbonate 500 MG Tab Chew PO PRN (15:35)
[2024-12-30] MEDS ORDERED: DiphenhydrAMINE HCl 50 MG Cap PO PRN (15:35)
[2024-12-30] MEDS ORDERED: Haloperidol Lactate Inj. 5 MG/ML Injection IM PRN (15:40)
[2024-12-30] MEDS ORDERED: HydrOXYzine Pamoate 50 MG Cap PO PRN (15:40)
[2024-12-30] MEDS ORDERED: Ibuprofen 600 MG Tab PO PRN (15:40)
[2024-12-30] MEDS ORDERED: FLU VACC TS2024-25(6MOS UP)/PF 45 MCG/0.5 ML SYRINGE IM ONE (15:40)
[2024-12-30] MEDS ORDERED: LORazepam 2 MG/ML 1ML Injection IM PRN (15:40)
[2024-12-30] MEDS ORDERED: Haloperidol 5 MG Tab PO PRN (15:40)
[2024-12-30] MEDS ORDERED: LORazepam 2 MG Tab PO PRN (15:45)
[2024-12-30] MEDS ORDERED: Ondansetron 4 MG SoluTab MM PRN (15:50)
--- NOTE | 2024-12-30 18:08 | NUR ---
ADMISSION NOTE/SHIFT SUMMARY PT ARRIVED TO [facility] FROM SURG FLOOR AT APPROX 1550. PT AxOx4. PLEASANT AND COOPERATIVE WITH CARE. PT HERE FOR SCHIZOPHRENIA DX. PT DENIES SI/HI AND AVTH UPON ADMISSION ASSESSMENT. PT REPORTS HX OF TBI, SEIZURE DISORDER AND HEAVY MARIJUANA USE. HE REPORTS HE HASN'T BEEN TAKING HIS MEDS FOR SEIZURES BECAUSE HE "TAKES ENOUGH WEED." PT IS CURRENLTY ON AN INVOLUNTARY HOLD. HIS ADMISSION IS COMPLETE AND HE WAS ORIENTED TO THE UNIT. PT HAS BEEN CALM AND COOPERATIVE SINCE ARRIVING ON THE UNIT. PT REPORTS HE LIVES WITH HIS MOM AND SHE IS SUPPORTIVE OF HIS CARE. HE IS CURRENTLY SITTING IN GROUP ROOM WATCHING TV. DENIES ANY NEEDS AT THIS TIME.
[2024-12-30 18:20] VITALS: BP 121/83
[2024-12-30 21:15] VITALS: BP 139/76
[2024-12-30] MEDS ORDERED: ZIPR60 PO (23:10)
[2024-12-30] MEDS ORDERED: GENICIN500 M1 PO (23:11)
[2024-12-30] MEDS ORDERED: CRANBERRY500 M1 PO (23:12)
[2024-12-30] MEDS ORDERED: L-Lysine500 M1 PO (23:15)
[2024-12-30] MEDS ORDERED: VITAMIN D31250 MC2 PO (23:17)
[2024-12-30] MEDS ORDERED: VIT D3-VIT K21 EACH PO (23:18)
[2024-12-30] MEDS ORDERED: [UNRECOGNIZED DRUG - OTHER] (23:20)
[2024-12-30] MEDS ORDERED: METAMUCIL POWD798 GM PO (23:22)
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
[2024-12-31 08:01] VITALS: BP 129/82
[2024-12-31] MEDS ORDERED: Cranberry Extract 250MG W/30 MG Vitamin C Tab PO SCH (09:00)
[2024-12-31] MEDS ORDERED: Cholecalciferol 1000 Unit Tablet (=25MCG) PO SCH (09:00)
[2024-12-31] MEDS ORDERED: Glucosamine Sulfate 500 MG Cap PO SCH (09:00)
[2024-12-31] MEDS ORDERED: Psyllium 1 EA Pack PO SCH (09:00)
[2024-12-31] MEDS ORDERED: LYSINE 1000 MG PO SCH (09:00)
[2024-12-31] MEDS ORDERED: Multivitamins 1 Tab PO SCH (09:00)
[2024-12-31] MEDS ORDERED: Ziprasidone HCL 20 MG Cap PO SCH (09:00)
--- NOTE | 2024-12-31 17:21 | NUR ---
SHIFT NOTE PT COOPERATIVE, CALM, AND PLEASANT THIS SHIFT. HE PARTICIPATED IN MILIEU, SNACKS, AND MEALS. PT DENIES ANY SI/HI/AVH AND STATES TO STAFF THAT HE REALLY ENJOYS THE [facility] AND THINKS IT IS A "[facility]OD PLACE." PT HAD A VISIT FROM MOTHER IN THE EVENING. MOTHER WANTED TO BRING PT A CUSTOM ORTHOPEDIC SHOE BUT WAS INFORMED THAT SHE SHOULD NOT D/T POLICY OF OUTSIDE BELONGINGS. PT WAS COMPLIANT WITH ALL MEDICATIONS.
[2024-12-31 20:16] VITALS: BP 122/74
--- NOTE | 2025-01-01 04:30 | NUR ---
SHIFT SUMMARY PATIENT ACTIVE IN MILIEU VISITING WITH STAFF AND PEERS, VERBALIZED FEELING "TOLERABLE" DENIES SI, HI, OR AVH. COOPERATIVE WITH MEDICATIONS. SLEEPING OFF AND ON T/O NIGHT RESP EVEN AND UNLABORED. CONTINUE TO MONITOR Q15MIN
[2025-01-01 08:02] VITALS: BP 121/69
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
--- NOTE | 2025-01-01 17:58 | NUR ---
SHIFT SUMMARY: PT ALERT, ORIENTED AND COOPERATIVE WITH CARE. DENIES SI, HI AND AVH. PT ENGAGED IN UNIT MILIEU, SITTING OUTSIDE, TALKING AND WATCHING TV. PT ATTENDED GROUPS AND MEALS.
[2025-01-01 20:04] VITALS: BP 136/88
--- NOTE | 2025-01-01 20:05 | NUR ---
NURSE NOTE PT C/O SOB AND L LATERAL CW PAIN IN RIB AREA AFTER PLAYING WI BOWLING WITH PEERS. SHE STATE SHE FEELS LIKE SHE IS HAVING AN ASTHMA ATTACK. PRN ALBUTEROL ADMINITERED, VS TAKEN, AND EKG PERFORMED. DR. CARROLL NOTIFIED. PT COLOR AND RESPIRATIONS ARE WNL AT THIS TIME, HR SLIGHTLY ELEVATED AT 113. SPO2 AT 97% ON RA. PT ABLE TO SPEAK IN FULL SENTENCES AND NO COUGH NOTED.
[2025-01-02] MEDS ORDERED: Omeprazole 20 MG CapCR PO SCH (06:00)
--- NOTE | 2025-01-02 06:09 | NUR ---
SHIFT SUMMARY Pt is A&O x4, calm, cooperative, polite, eye contact is appropriate. Pt stated his mood was "calm," affect is congruent to reported mood. Pt denies current SI, HI, and hallucinations. No c/o pain. Pt c/o indigestion and PRN Tums and aluminum hydroxide. Pt c/o chest pain RT dispepsia. Staff completed ECG, which showed normal sinus rhythm. Pt given saltine crackers, which help to disipate his chest discomfort. Provider has ordered omeprazole 20mg qday; first dose was given at 0600. Pt was active on the unit throughout the evening, spending time watching TV and playing video games. Staff continues to monitor q15m for safety and wellness.
[2025-01-02 07:51] VITALS: BP 116/62
--- NOTE | 2025-01-02 08:32 | NUR ---
HOSPITAL DISCHARGE APPOINTMENT Patient is scheduled to meet with Rocael Betancourt MD for hospital discharge appointment on 01/13/25 at 0940 at [address], [place] [address] // [phone] HEDY entered appointment information into patient's discharge packet
--- NOTE | 2025-01-02 09:48 | NUR ---
HOSPITAL FOLLOW UP APPOINTMENT Patient is scheduled to meet with RAISA Huynh of [facility] crisis team on 01/06/25 at 1400 // [address], [place] [address] // [phone] HEDY entered appointment information in patient's discharge packet
--- NOTE | 2025-01-02 15:52 | NUR ---
NURSING DISCHARGE NOTE PT AA&OX4. PLEASANT AND COOPERATIVE WITH CARE. SPEECH AND EYE CONTACT IS APPROPRIATE. MOOD IS GOOD AFFECT IS CONGRUENT. PT DENIES SI, AVH. PT DENIES SI, AVH. HE REPORTS HE IS EXCITED AND READY FOR DC. DC MEDICATIONS, PATIENT PORTAL, SMOKING CEASATION, MENTAL HEALTH DX, AND FOLLOW UP APPT. REVIEWED. PT VERBALIZED UNDERSTANDING AND DENIED ANY QUESTIONS. RX FAXED TO [facility]. PT DC TO HOME WITH AUNT @2949
== END 2025-01-02 12:45 | disposition home or self-care (01) | DRG 886 ==
LOC: BHU 14:45
PROVIDERS: ADMIT Psychiatry & Neurology Psychiatry
DX: F63.9 Impulse disorder, unspecified (principal); F12.10 Cannabis abuse, uncomplicated; F90.9 Attention-deficit hyperactivity disorder, unspecified type; F22 Delusional disorders; F32.A Depression, unspecified; F10.20 Alcohol dependence, uncomplicated; F17.210 Nicotine dependence, cigarettes, uncomplicated; Z87.820 Personal history of traumatic brain injury; Z87.19 Personal history of other diseases of the digestive system; Z79.899 Other long term (current) drug therapy; Z79.1 Long term (current) use of non-steroidal anti-inflammatories (NSAID)
CPT/HCPCS: 93005; 93010; A9270

== ENCOUNTER 2025-01-04 10:48 | Emergency (ER) | payer OTHER ==
[~2025-01-04] VITALS: Ht 185.4 cm; Wt 99.8 kg
[~2025-01-04 10:48] MED LIST changes: +CRANBERRY500 M1 PO; +GENICIN500 M1 PO; +L-Lysine500 M1 PO; +METAMUCIL POWD798 GM PO; +VIT D3-VIT K21 EACH PO; +VITAMIN D31250 MC2 PO; +ZIPR60 PO; +[UNRECOGNIZED DRUG - OTHER]
[2025-01-04] MEDS ORDERED: LORazepam 2 MG/ML 1ML Injection ONE (10:51)
[2025-01-04] MEDS ORDERED: LEVETIRACETAM 500 MG IV ONE (10:55)
[2025-01-04] MEDS ORDERED: LORazepam 2 MG/ML 1ML Injection IV PRN (10:55)
[2025-01-04] MEDS ORDERED: NS 1,000 ML IV SCH (10:55)
[2025-01-04 11:23] LABS: BASOPHILS ABSOLUTE AUTO 0.05 K/mm3 (0.00-0.23); BASOPHILS PERCENT AUTO 1 % (0-2); EOSINOPHILS ABSOLUTE AUTO 0.14 K/mm3 (0.00-0.68); EOSINOPHILS PERCENT AUTO 2 % (0-6); Hematocrit 39.5 % (37.0-53.0); Hemoglobin 13.3 g/dL (13.5-17.5); IMMATURE GRAN ABSOLUTE AUTO 0.06 K/mm3 (0.00-0.10); IMMATURE GRAN PERCENT AUTO 1 % (0-1); LYMPHOCYTES ABSOLUTE AUTO 1.28 K/mm3 (0.84-5.20); LYMPHOCYTES PERCENT AUTO 15 % (21-46); MONOCYTES ABSOLUTE AUTO 0.74 K/mm3 (0.16-1.47); MONOCYTES PERCENT AUTO 9 % (4-13); Mean Corpuscular HGB 32.8 pg (26.0-34.0); Mean Corpuscular HGB Conc 33.7 g/dL (31.5-36.5); Mean Corpuscular Volume 98 fL (80-100); Mean Platelet Volume 9.4 fL (9.1-12.4); NEUTROPHILS ABSOLUTE AUTO 6.17 K/mm3 (1.96-9.15); NEUTROPHILS PERCENT AUTO 73 % (41-73); Platelet Count 205 K/mm3 (150-400); RDW Coefficient Variation 13.2 % (11.7-14.2); RDW Standard Deviation 47.6 fL (35.1-46.3); Red Blood Cell Count 4.05 M/mm3 (4.30-5.90); White Blood Cell Count 8.44 K/mm3 (4.00-11.30)
[2025-01-04 11:27] LABS: Albumin, Blood 3.4 g/dL (3.4-5.0); Bilirubin, Total 0.3 mg/dL (0.1-1.0); Bun/Creatinine Ratio 15.3 (12.0-20.0); Calcium, Blood 8.5 mg/dL (8.5-10.1); Creatinine, Blood 0.85 mg/dL (0.60-1.20); Globulin, Blood 3.4 g/dL (2.2-4.0); Magnesium, Blood 1.9 mg/dL (1.6-2.4); Potassium, Blood 3.9 mmol/L (3.5-5.5); Total Protein, Blood 6.8 g/dL (6.4-8.2)
[2025-01-04] MEDS ORDERED: levETIRAcetam 4,500 MG in NS 100 ML IV ONE (11:35)
[2025-01-04] MEDS ORDERED: Thiamine HCl 100 MG in NS 50 ML IV ONE (12:15)
[2025-01-04] MEDS ORDERED: Folic Acid 1 MG in NS 50 ML IV SCH (12:21)
[2025-01-04 12:35] LABS: Magnesium, Blood 2.2 mg/dL (1.6-2.4); Phosphorus, Blood 3.4 mg/dL (2.5-4.9)
[2025-01-04] MEDS ORDERED: Mag Hydrox/AL Hydrox/Simeth 30 ML UDC PO ONE (14:25)
[2025-01-04] MEDS ORDERED: Atropine/Scopalam/Hyoscam/PB 5 ML UDC PO ONE (14:25)
[2025-01-04] MEDS ORDERED: Lidocaine 2% Viscous Soln 15 ML UDC PO ONE (14:25)
[2025-01-04 15:43] LABS: Source, Urine Clean Catch
[2025-01-04 15:53] LABS: Appearance, Urine Hazy (Clear); Bilirubin, Urine Neg (Neg); Blood, Urine 5+ (Neg); Color, Urine Yellow (P-Yellow); Glucose Qualitative, Urine Neg (Neg); Ketones, Urine Neg (Neg); Leukocyte Esterase, Urine 3+ (Neg); Nitrite, Urine Neg (Neg); Protein, Urine 2+ (Neg); Specific Gravity, Urine 1.025 (1.003-1.022); Urobilinogen, Urine 1+ (Normal)
[2025-01-04 16:07] LABS: U Amphetamine Screen Not Detected; U Barbituate Screen Not Detected; U Benzodiazapine Screen Not Detected; U Buprenorphine Screen Not Detected; U Cannabinoids Screen DETECTED; U Cocaine Screen Not Detected; U Methadone Screen Not Detected; U Methamphetamine Screen Not Detected; U Opiates Screen Not Detected; U Oxycodone Screen Not Detected; U Phencyclidine Screen Not Detected
[2025-01-04 16:11] LABS: Hyaline Casts 0-2 /lpf (0-2)
[2025-01-04 16:12] LABS: Bacteria Many /hpf; Mucus Light (0-Heavy); Red Blood Cells, Urine 25-50 /hpf (0-2); Squamous Epithelial Cells Rare /hpf (Few)
[2025-01-04 20:00] VITALS: BP 131/89
== END 2025-01-04 20:30 | disposition other institution (70) ==
LOC: ER 10:48
PROVIDERS: Student in an Organized Health Care Education/Training Program
DX: G40.901 Epilepsy, unspecified, not intractable, with status epilepticus (principal); F90.9 Attention-deficit hyperactivity disorder, unspecified type; F32.A Depression, unspecified; F17.200 Nicotine dependence, unspecified, uncomplicated; E87.20 Acidosis, unspecified; Z79.899 Other long term (current) drug therapy; Z87.820 Personal history of traumatic brain injury
CPT/HCPCS: 70450; 71045; 80053; 80320; 81001; 83735; 84100; 85025; 93005; 93010; 96361; 96365; 96366; 96367; 96375; 99285-25; A9270; J1953; J2060; J3411; J7030

== ENCOUNTER 2025-07-03 23:31 | Emergency (ER) | payer OTHER ==
[~2025-07-03] VITALS: Ht 182.9 cm; Wt 72.6 kg
[2025-07-03 23:52] LABS: BASOPHILS ABSOLUTE AUTO 0.09 K/mm3 (0.00-0.23); BASOPHILS PERCENT AUTO 1 % (0-2); EOSINOPHILS ABSOLUTE AUTO 0.32 K/mm3 (0.00-0.68); EOSINOPHILS PERCENT AUTO 4 % (0-6); Hematocrit 44.2 % (37.0-53.0); Hemoglobin 14.9 g/dL (13.5-17.5); IMMATURE GRAN ABSOLUTE AUTO 0.04 K/mm3 (0.00-0.10); IMMATURE GRAN PERCENT AUTO 1 % (0-1); LYMPHOCYTES ABSOLUTE AUTO 3.19 K/mm3 (0.84-5.20); LYMPHOCYTES PERCENT AUTO 38 % (21-46); MONOCYTES ABSOLUTE AUTO 0.67 K/mm3 (0.16-1.47); MONOCYTES PERCENT AUTO 8 % (4-13); Mean Corpuscular HGB Conc 33.7 g/dL (31.5-36.5); Mean Corpuscular Volume 101 fL (80-100); NEUTROPHILS ABSOLUTE AUTO 4.00 K/mm3 (1.96-9.15); NEUTROPHILS PERCENT AUTO 48 % (41-73); NRBC ABSOLUTE 0.00 K/mm3 (0.00-0.02); NRBC Auto 0.0 /100 WBC (0.0-0.2); Platelet Count 198 K/mm3 (150-400); RDW Coefficient Variation 14.0 % (11.7-14.2); RDW Standard Deviation 52.1 fL (35.1-46.3)
[2025-07-04 00:18] LABS: Alanine Aminotransfer (ALT/SGP 20.0 U/L (12-78); Albumin, Blood 3.6 g/dL (3.4-5.0); Albumin/Globulin Ratio 1.1 (0.8-1.8); Anion Gap 9.0 mmol/L (3-11); Aspartate Aminotrans (AST/SGOT 15.0 U/L (12-37); Bilirubin, Total 0.2 mg/dL (0.1-1.0); Blood Urea Nitrogen 6.0 mg/dL (8-24); CO2, Blood 24.0 mmol/L (21-32); Calcium, Blood 8.2 mg/dL (8.5-10.1); Chloride, Blood 116.0 mmol/L (98-108); Creatinine, Blood 0.85 mg/dL (0.60-1.20); Globulin, Blood 3.3 g/dL (2.2-4.0); Glucose, Blood 91.0 mg/dL (70-99); Potassium, Blood 4.0 mmol/L (3.5-5.5); Sodium, Blood 145.0 mmol/L (136-145); Total Protein, Blood 6.9 g/dL (6.4-8.2)
[2025-07-04 00:21] LABS: Ethanol (Alcohol), Blood, Med 314.0 mg/dL
[2025-07-04 02:47] LABS: Source, Urine Clean Catch
[2025-07-04 02:50] LABS: Bilirubin, Urine Neg (Neg); Glucose Qualitative, Urine Neg (Neg); Ketones, Urine Neg (Neg); Leukocyte Esterase, Urine Neg (Neg); Protein, Urine Neg (Neg); Specific Gravity, Urine 1.010 (1.003-1.022); Urobilinogen, Urine NORM (Normal)
[2025-07-04 03:02] LABS: Color, Urine Pale Yellow (P-Yellow)
[2025-07-04 06:00] VITALS: BP 105/61
== END 2025-07-04 07:35 | disposition home or self-care (01) ==
LOC: ER 23:31
PROVIDERS: Emergency Medicine
DX: F10.129 Alcohol abuse with intoxication, unspecified (principal); G93.40 Encephalopathy, unspecified; S80.212A Abrasion, left knee, initial encounter; S80.211A Abrasion, right knee, initial encounter; S09.90XA Unspecified injury of head, initial encounter; G31.2 Degeneration of nervous system due to alcohol; F17.200 Nicotine dependence, unspecified, uncomplicated; Y90.8 Blood alcohol level of 240 mg/100 ml or more; W01.198A Fall on same level from slipping, tripping and stumbling with subsequent striking against other object, initial encounter
CPT/HCPCS: 70450; 72125; 80053; 80320; 81003; 85025; 90471; 90715; 93005; 93010; 99285-25; L0160

== ENCOUNTER 2025-07-07 19:05 | Emergency (ER) | payer OTHER ==
[~2025-07-07] VITALS: Ht 185.4 cm; Wt 86.2 kg
[2025-07-07 19:19] VITALS: BP 114/75
== END 2025-07-07 19:26 | disposition home or self-care (01) ==
LOC: ER 19:05
DX: F10.129 Alcohol abuse with intoxication, unspecified (principal); F17.200 Nicotine dependence, unspecified, uncomplicated; Z79.899 Other long term (current) drug therapy
CPT/HCPCS: 99283